=== PATIENT | female | born 1955 | race Caucasian/White ===

== ENCOUNTER 2020-07-02 07:11 | Outpatient (CLI) | payer OTHER ==
--- NOTE | 2020-07-02 09:00 | CT ---
CT ABDOMEN AND PELVIS WITH AND WITHOUT IV COTNRAST: Post contrast images obtained in portal venous phase and delayed venous phase. INDICATION: Abdominal pain. Recurrent UTI. COMPARISON: No comparison studies. FINDINGS: Lung bases clear. Liver, spleen, and pancreas unremarkable. There is a peripherally calcified gallstone seen in the neck of the gallbladder which measures approx imately 1.5 cm diameter. No evidence o gallbladder wall thickening or pericholecystic inflammation. Adrenal glands are normal. Review of the kidneys shows no evidence of urinary tract calculus. No hydronephrosis. The ureters h ave normal appearance and caliber. There is a hyperdense slightly exophytic lesion from the lateral left renal cortex measuring 1.0 cm. This lesion shows low density on the post contrast studies but does have internal density making it a complex lesion. There is another complex lesion slightly more inferior in the lateral left renal cortex best apprecia norberto on the post contrast images measuring 6-7 mm. This small lesion shows a suggestion of internal e nhancement. Another 7 mm low-density lesion seen in the posterior left renal cortex, best appreciated on the post contrast studies. Right kidney unremarkable. Delayed images show contrast appreciated in the collecting structures. Collecting structures and uri nary bladder appear unremarkable. Small and large bowel loops unremarkable. There is a 1.4 cm mesenteric lymph node in the right lower quadrant. The appendix appears normal. Abdominal aorta shows atherosclerotic calcification and normal caliber. Images through the pelvis show evidence of hysterectomy. No mass or free fluid. Osseous structures unremarkable with mild degenerative changes in the spine. IMPRESSION: 1. There are small complex indeterminate lesions in the left kidney. The hyperdense lesion somewhat exophytic left lateral kidney. More inferiorly is another complex lesion measuring 6-7 mm which vilma ws suggestion of internal enhancement. Other small low-density lesions in the left kidney may repres ent small cysts. Recommend repeat CT abdomen with and without contrast within [address] ability. 2. Cholelithiasis as described above. 3. Nonspecific mesenteric lymph node in the right lower quadrant. POS: [facility]
[2020-07-02] MEDS ORDERED: Iopamidol 370 76% 100 ML VIAL ONE (11:37)
== END 2020-07-02 07:12 | disposition home or self-care (01) ==
LOC: BICCT 07:11
PROVIDERS: ATTEND Registered Nurse
DX: R10.30 Lower abdominal pain, unspecified (principal); K80.20 Calculus of gallbladder without cholecystitis without obstruction; N28.9 Disorder of kidney and ureter, unspecified; Z87.440 Personal history of urinary (tract) infections; Z87.898 Personal history of other specified conditions
CPT/HCPCS: 74178; 82565; Q9967

== ENCOUNTER 2020-08-05 14:37 | Outpatient (CLI) | payer OTHER ==
[2020-08-06 06:46] LABS: SARS-CoV-2 PCR by NAA Not Detected (NotDetected)
== END 2020-08-05 14:38 | disposition home or self-care (01) ==
LOC: LABBT 14:37
PROVIDERS: ATTEND Surgery
DX: Z01.818 Encounter for other preprocedural examination (principal); Z20.822 Contact with and (suspected) exposure to COVID-19; K80.20 Calculus of gallbladder without cholecystitis without obstruction
CPT/HCPCS: 87635; 93005; 93010; U0003; U0005

== ENCOUNTER 2020-08-08 05:53 | Day surgery (SDC) | payer OTHER ==
[2020-08-06 12:54] VITALS: BMI 27.3
[2020-08-08] MEDS ORDERED: Fentanyl 100 MCG/2 ML VIAL ONE ×2 (06:21→09:11)
[2020-08-08] MEDS ORDERED: Dexmedetomidine 200 MCG/2 ML VIAL ONE (06:21)
[2020-08-08] MEDS ORDERED: XYLOCAINE 2%-EPI 1:100,000 20 ML VIAL ONE (06:46)
[2020-08-08] MEDS ORDERED: Bupivacaine 0.25% HCL 30 ML VIAL ONE (06:46)
[2020-08-08] MEDS ORDERED: cefOXitin Sodium/Dextrose 2 GM/50 ML BAG ONE (07:05)
[2020-08-08 07:12] LABS: #Basophils 0.1 thou/uL (0.0-0.2); #Eosinphils 0.1 thou/uL (0.0-0.7); #Lymphocytes 2.5 thou/uL (1.20-3.40); #Monocytes 0.3 thou/uL (0.11-0.59); %Basophils 1.1 % (0.0-1.0); %Eosinophils 2.3 % (0.0-10.0); %Lymphocytes 41.1 % (21.0-51.0); %Monocytes 5.5 % (0.0-10.0); %Neutrophils 50.1 % (42.0-75.0); Hemoglobin 12.1 g/dL (12.0-16.0); Mean Corpuscular HGB CONC 34.9 g/dL (32.0-36.0); Mean Corpuscular Hemoglobin 34.4 pg (27.0-31.0); Mean Corpuscular Volume 98.5 fL (78.0-98.0); Mean Platelet Volume 6.3 fL (7.4-10.4); Platelet Count 260 thou/uL (130-400); RBC Distribution Width 12.3 % (11.5-14.5); Red Blood Cell (RBC) Count 3.53 mill/uL (4.20-5.40)
[2020-08-08 07:36] LABS: ALT (SGPT) 12 U/L (8-55); AST (SGOT) 14 U/L (5-34); Albumin 4.2 g/dL (3.4-4.8); Alkaline Phosphatase 85 U/L (40-110); Anion Gap 13 mmol/L (10-20); BUN (Urea Nitrogen) 12 mg/dL (9.8-20.1); Bilirubin, Direct 0.1 mg/dL (0.1-0.3); Bilirubin, Total 0.3 mg/dL (0.2-1.2); Calc. Creatinine Clearance 89 mL/min (70-130); Calcium 8.8 mg/dL (7.8-10.44); Carbon Dioxide 27 mmol/L (23-31); Chloride 105 mmol/L (98-107); Globulin 2.5 g/dL (2.4-3.5); Glucose 109 mg/dL (80-115); Potassium 4.1 mmol/L (3.5-5.1); Protein, Total 6.7 g/dL (5.8-8.1); Sodium 141 mmol/L (136-145)
[2020-08-08] MEDS ORDERED: Levofloxacin 500 mg/D5W 100 ml Premix Bag ONE (07:49)
[2020-08-08] MEDS ORDERED: Ondansetron PF 4 MG/2 ML Vial ONE (08:07)
[2020-08-08] MEDS ORDERED: Glycopyrrolate 0.2 MG/ML 5 ML SYRINGE ONE (08:07)
[2020-08-08] MEDS ORDERED: ePHEDrine 50 MG/ML VIAL ONE (08:07)
[2020-08-08] MEDS ORDERED: Lidocaine 1% PF 5 ML VIAL ONE (08:07)
[2020-08-08] MEDS ORDERED: Dexamethasone 20 MG/5 ML VIAL ONE (08:07)
[2020-08-08] MEDS ORDERED: PROPOFOL 200 MG/20 ML VIAL ONE (08:07)
[2020-08-08] MEDS ORDERED: HYDROcodone/Acetaminophen 5/325 mg Tablet ONE (11:13)
== END 2020-08-08 11:45 | disposition home or self-care (01) ==
LOC: SDC 05:53
PROVIDERS: ATTEND Surgery
PROC: 0FT44ZZ Resection of Gallbladder, Percutaneous Endoscopic Approach (ICD-10-PCS; principal; 2020-08-08)
DX: K80.10 Calculus of gallbladder with chronic cholecystitis without obstruction (principal); E78.5 Hyperlipidemia, unspecified; J30.2 Other seasonal allergic rhinitis; Z79.899 Other long term (current) drug therapy; Z87.891 Personal history of nicotine dependence; Z88.0 Allergy status to penicillin; Z88.2 Allergy status to sulfonamides; Z88.8 Allergy status to other drugs, medicaments and biological substances; Z91.030 Bee allergy status
CPT/HCPCS: 36415; 80053; 80076; 85025; 88304; J0694; J1100; J1956; J2405; J2704; J3010; J3490; S0020

== ENCOUNTER 2021-02-16 13:40 | Outpatient (CLI) | payer OTHER ==
[~2021-02-16 13:40] MED LIST: Iopamidol 370 76% 100 ML VIAL ONE
== END 2021-02-16 13:41 | disposition home or self-care (01) ==
LOC: BICCT 13:40
PROVIDERS: ATTEND Urology
DX: N28.1 Cyst of kidney, acquired (principal); N39.0 Urinary tract infection, site not specified; Z72.0 Tobacco use
CPT/HCPCS: 74178; 82565; Q9967

== ENCOUNTER 2022-04-08 12:40 | Outpatient (CLI) | payer MEDICARE | END 2022-04-08 12:41 | disposition home or self-care (01) | LOC: BICMAMMO 12:40 | PROVIDERS: ATTEND Registered Nurse | DX: Z12.31 Encounter for screening mammogram for malignant neoplasm of breast (principal); Z13.820 Encounter for screening for osteoporosis; M81.0 Age-related osteoporosis without current pathological fracture; M85.88 Other specified disorders of bone density and structure, other site; Z78.0 Asymptomatic menopausal state | CPT/HCPCS: 77063; 77067; 77080 ==

== ENCOUNTER 2022-04-08 13:41 | Outpatient (CLI) | payer MEDICARE | END 2022-04-08 13:42 | disposition home or self-care (01) | LOC: BICULT 13:41 | PROVIDERS: ATTEND Registered Nurse | DX: Z12.2 Encounter for screening for malignant neoplasm of respiratory organs (principal); N28.1 Cyst of kidney, acquired; E07.89 Other specified disorders of thyroid; N28.9 Disorder of kidney and ureter, unspecified; Z87.891 Personal history of nicotine dependence | CPT/HCPCS: 71271; 76770 ==

== ENCOUNTER 2022-06-10 13:53 | Outpatient (CLI) | payer MEDICARE | END 2022-06-10 13:54 | disposition home or self-care (01) | LOC: BICULT 13:53 | PROVIDERS: ATTEND Registered Nurse | DX: E07.89 Other specified disorders of thyroid (principal); E04.2 Nontoxic multinodular goiter | CPT/HCPCS: 76536 ==

== ENCOUNTER 2024-06-01 11:57 | Outpatient (CLI) | payer MEDICARE ==
[~2024-06-01 11:57] MED LIST changes: -Iopamidol 370 76% 100 ML VIAL ONE; +Magnevist 469MG/ML 20 ML VIAL ONE
== END 2024-06-01 11:58 | disposition home or self-care (01) ==
LOC: BICMRI 11:57
PROVIDERS: ATTEND Otolaryngology Plastic Surgery within the Head & Neck
DX: H90.3 Sensorineural hearing loss, bilateral (principal)
CPT/HCPCS: 70553